=== PATIENT | male | born 2000 | race Caucasian/White ===

== ENCOUNTER 2021-10-04 02:07 | Emergency (ER) | payer OTHER, SELFPAY ==
[2021-10-04 02:15] VITALS: BP 132/63; PULSE 95; RESP 18; TEMP 36.8; O2SAT 97; BMI 19.5
--- NOTE | 2021-10-04 02:25 | ED.ANIMALBIT ---
HPI - Animal Bite General Chief Complaint: Animal Bite Stated Complaint: Dog bite Time Seen by Provider: 10/04/21 02:25 Source: patient Mode of arrival: ambulatory Limitations: no limitations History of Present Illness HPI narrative: Patient grabbed his pet dog who had broken pelvis unknowingly and dog bit him on his face patient came with 2 superficial bite lewis on the chin Related Data Previous Rx's Medication Instructions Recorded amoxicillin 875 mg-potassium 1 tab PO BID #20 tab 10/04/21 clavulanate 125 mg tablet Allergies Allergy/AdvReac Type Severity Reaction Status Date / Time No Known Allergies Allergy Verified 10/04/21 02:28 Review of Systems Review of Systems: Yes all other systems are reviewed and are negative [facility] Social History Social History Advance Directives: No Physical Exam ED Vital Signs: Vital Signs - 24 hr 10/04/21 02:15 Temperature 98.3 F Pulse Rate 95 Respiratory Rate 18 Blood Pressure 132/63 Pulse Oximetry 97 BMI result Body Mass Index 19.5 Const General: healthy appearing and comfortable [facility] Face images: 1. Superficial laceration 0.5 cm 2. Superficial laceration 0.5 cm Procedures Laceration Laceration 1: Site: face Size (cm): 0.5 Description: linear Local Anesthetic: lidocaine 2% Amount of anesthesia used (mL): 0.5 Skin layer closed with: nylon Size (cm): 6-0 Number of sutures: 3 Technique: simple, interrupted Laceration 2: Site: face Size (cm): 0.5 Description: linear Depth: simple, single layer Local Anesthetic: lidocaine 2% Amount of anesthesia used (mL): 0.5 Skin layer closed with: nylon Size (cm): 6-0 Number of sutures: 2 Technique: simple, interrupted Discharge Plan Discharge Clinical Impression: Dog bite Patient Disposition: Home, Self-Care Instructions: Animal Bite (ED) Additional Instructions: Local care as advised Suture removal in 1 week Antibiotic as advised Watch dog for 10 days, Report to the ER immediately if dog behave differently or dies Prescriptions: New amoxicillin-pot clavulanate 875-125 mg tablet 1 tab PO BID Qty: 20 0RF
--- NOTE | 2021-10-04 02:53 | PC.NURSE ---
Assumed care of pt Pt c/o lac over RT side of chin. Per pt, was bit by step-mother's leon pittbull approx 2 hours ago. Per pt, dog is his step-mother's and is not up-to-date with shots. Occurred in [place] Dog remains with patient's step-mother (Yesenia Weber) Form filled out for Animal Control. Attempted to call [place] Animal control but no answer. Faxed form to . Wound cleaned Will continue to monitor
[2021-10-04] MEDS: Lidocaine HCl 2 % MPF 5 ML VIAL INFILTRATI (03:22)
[2021-10-04] MEDS: Amoxicillin/Potassium Clav 875 MG TABLET PO (03:22)
== END 2021-10-04 03:26 | disposition home or self-care (01) ==
PROVIDERS: Emergency Provider Internal Medicine
DX: S00.87XA Other superficial bite of other part of head, initial encounter (principal); W54.0XXA Bitten by dog, initial encounter; Y93.9 Activity, unspecified; Y92.9 Unspecified place or not applicable; Y99.9 Unspecified external cause status
CPT/HCPCS: 12011; 99283; 99284

== ENCOUNTER 2022-07-02 17:04 | Emergency (ER) | payer OTHER, SELFPAY ==
--- NOTE | ~2022-07-02 | XR_ITS ---
EXAMINATION: XR CHEST CLINICAL INFORMATION: Cough with deep breathing. COMPARISON: None TECHNIQUE: 2 views of the chest were obtained. FINDINGS: No significant abnormality is noted involving the heart, lungs, mediastinum, bony thorax or soft tissues. XR/XR chest 2V IMPRESSION: No acute cardiopulmonary process.
--- NOTE | ~2022-07-02 | CT_ITS ---
EXAMINATION: CT ABDOMEN AND PELVIS WITHOUT CONTRAST CLINICAL INFORMATION: Right-sided flank pain COMPARISON: None TECHNIQUE: Multidetector volumetric imaging was performed from the superior aspect of the liver through the pubic symphysis. Sagittal and coronal reformatted images were obtained on the technologist's workstation. This CT examination was performed using dose optimization techniques as appropriate, variously including the following: *Automated exposure control *Adjustment of mA and/or kV according to patient size (this includes techniques or standardized protocols for targeted exams where dose is matched to indication/reason for exam; i.e. extremities or head) *Use of iterative reconstruction technique DLP: 303 mGy-cm FINDINGS: LUNG BASES: The visualized lung bases are unremarkable. LIVER, GALLBLADDER, AND BILIARY TREE: The liver is normal in size, shape, and attenuation. No focal hepatic lesion or biliary ductal dilatation is present. The gallbladder is unremarkable with no evidence of radiopaque gallstones, gallbladder wall thickening, or obvious pericholecystic inflammatory changes. PANCREAS: Unremarkable. SPLEEN: Unremarkable. ADRENAL GLANDS: Unremarkable. KIDNEYS AND URETERS: The kidneys are normal in size, shape, and attenuation. Both kidneys are nonrotated with anterior facing prominent extrarenal pelves. No caliectasis, hydroureter, or calculi seen. No perinephric stranding. BLADDER: Unremarkable. GASTROINTESTINAL TRACT: The small and large bowel are unremarkable. The appendix is none identified with certainty but there is no evidence of appendicitis. ABDOMINAL WALL: No significant hernia is appreciated. LYMPH NODES: No retroperitoneal lymphadenopathy. VASCULAR: Unremarkable. PELVIC VISCERA: The prostate and seminal vesicles are unremarkable. OSSEOUS STRUCTURES: Unremarkable. Schmorl's node seen at the inferior endplate of L3. CT/CT abdomen pelvis wo IV con IMPRESSION: A cause for the patient's right-sided flank pain has not been found. Fleischner guidelines were followed.
[2022-07-02 17:09] VITALS: BP 131/58; PULSE 61; RESP 20; TEMP 36.6; O2SAT 97; BMI 23.0
--- NOTE | 2022-07-02 17:09 | ED_ITS ---
HPI - Abdominal Pain General Chief Complaint: Abdominal Pain Stated Complaint: trouble walking, breathing, kidney pain Time Seen by Provider: 07/02/22 21:35 Related Data Previous Rx's Medication Instructions Recorded amoxicillin 875 mg-potassium 1 tab PO BID #20 tabs 10/04/21 clavulanate 125 mg tablet Allergies Allergy/AdvReac Type Severity Reaction Status Date / Time No Known Allergies Allergy Verified 10/04/21 02:28 [facility] Social History Social History Advance Directives: No Physical Exam ED Vital Signs: Vital Signs - 24 hr 07/02/22 17:09 Temperature 97.9 F Pulse Rate 61 Respiratory Rate 20 Blood Pressure 131/58 L Pulse Oximetry 97 Oxygen Delivery Method Room Air BMI result Body Mass Index 23.0 Course Course Course Narrative: This is rapid medical exam. deferred additional HPI, ROS, PE to primary provider. 21 yo male healthy here with left flank and abdominal pain with no other complaints. Pain worsened with deep breathing and movement. Will obtain labs, chest x-ray, COVID screen, UA Medical Decision Making Lab Data 07/02/22 19:44 07/02/22 19:44 Labs: Lab Results 07/02/22 07/02/22 07/02/22 Range/Units 19:43 19:44 19:44 WBC 5.8 (4.8-10.8) X10*3/uL RBC 5.28 (4.60-5.80) X10*6/uL Hgb 15.2 (14.0-18.0) g/dl Hct 45.5 (42.0-52.0) % MCV 86.2 (80.0-98.0) fL MCH 28.8 (27.0-33.0) pg MCHC 33.4 (31.0-36.0) g/dl RDW 11.8 (11.0-16.0) % Plt Count 241 (160-400) X10*3/uL MPV 10.2 (9.4-12.4) fL Immature Gran % (Auto) 0.3 (0.0-0.4) % Neut % (Auto) 45.2 (45-73) % Lymph % (Auto) 42.2 H (20-40) % [place] % (Auto) 9.9 (2-11) % Eos % (Auto) 1.9 (0-4) % Baso % (Auto) 0.5 (0-2) % Lymph # (Auto) 2.4 (1.2-4.9) X10*3/uL [place] # (Auto) 0.6 (0.1-1.2) X10*3/uL Eos # (Auto) 0.1 (0.0-0.4) X10*3/uL Baso # (Auto) 0.0 (0.0-0.2) X10*3/uL Abs Immat Gran (auto) 0.02 (0.00-0.03) X10*3/uL Absolute Neuts (auto) 2.6 (2.0-8.3) x10*3/uL Absolute Nucleated RBC 0.000 (0.0-0.012) X10*3/uL Nucleated RBC % (auto) 0.0 (0.0-0.2) /100WBC Sodium 139 (135-145) mmol/L Potassium 4.0 (3.3-5.1) mmol/L Chloride 105 (96-108) mmol/L Carbon Dioxide 27 (22-29) mmol/L Anion Gap 11 L (12-20) BUN 8 L (9-16) mg/dL Creatinine 0.84 (0.5-1.4) mg/dL Estim Creat Clear Calc 148.4 Estimated GFR > 60 Random Glucose 93 (60-115) mg/dL Calcium 9.8 (8.4-10.2) mg/dL Total Bilirubin 0.8 (0.0-1.0) mg/dL Direct Bilirubin 0.3 (0.0-0.5) mg/dL AST 17 (5-37) U/L ALT 7 (0-40) U/L Alkaline Phosphatase 79 (39-117) U/L Total Protein 7.3 (6.5-8.0) g/dL Albumin 4.7 (3.5-5.0) g/dL Lipase 148 H (8-78) U/L Urine Color Urine Appearance Urine pH (5.0-9.0) Ur Specific [place] (1.005-1.025) Urine Protein (Neg-Trace) mg/dL Urine Glucose (UA) (Negative) mg/dL Urine Ketones (Negative) mg/dL Urine Blood (Negative) Urine Nitrite (Negative) Ur Leukocyte Esterase (Negative) Influenza Type A (PCR) NEGATIVE (Negative) Influenza Type B (PCR) NEGATIVE (Negative) RSV RNA Qual (PCR) NEGATIVE (Negative) SARS-CoV-2 RNA (RT-PCR) NEGATIVE (Negative) 07/02/22 Range/Units 21:27 WBC (4.8-10.8) X10*3/uL RBC (4.60-5.80) X10*6/uL Hgb (14.0-18.0) g/dl Hct (42.0-52.0) % MCV (80.0-98.0) fL MCH (27.0-33.0) pg MCHC (31.0-36.0) g/dl RDW (11.0-16.0) % Plt Count (160-400) X10*3/uL MPV (9.4-12.4) fL Immature Gran % (Auto) (0.0-0.4) % Neut % (Auto) (45-73) % Lymph % (Auto) (20-40) % [place] % (Auto) (2-11) % Eos % (Auto) (0-4) % Baso % (Auto) (0-2) % Lymph # (Auto) (1.2-4.9) X10*3/uL [place] # (Auto) (0.1-1.2) X10*3/uL Eos # (Auto) (0.0-0.4) X10*3/uL Baso # (Auto) (0.0-0.2) X10*3/uL Abs Immat Gran (auto) (0.00-0.03) X10*3/uL Absolute Neuts (auto) (2.0-8.3) x10*3/uL Absolute Nucleated RBC (0.0-0.012) X10*3/uL Nucleated RBC % (auto) (0.0-0.2) /100WBC Sodium (135-145) mmol/L Potassium (3.3-5.1) mmol/L Chloride (96-108) mmol/L Carbon Dioxide (22-29) mmol/L Anion Gap (12-20) BUN (9-16) mg/dL Creatinine (0.5-1.4) mg/dL Estim Creat Clear Calc Estimated GFR Random Glucose (60-115) mg/dL Calcium (8.4-10.2) mg/dL Total Bilirubin (0.0-1.0) mg/dL Direct Bilirubin (0.0-0.5) mg/dL AST (5-37) U/L ALT (0-40) U/L Alkaline Phosphatase (39-117) U/L Total Protein (6.5-8.0) g/dL Albumin (3.5-5.0) g/dL Lipase (8-78) U/L Urine Color Yellow Urine Appearance Clear Urine pH 7.0 (5.0-9.0) Ur Specific [place] 1.015 (1.005-1.025) Urine Protein Negative (Neg-Trace) mg/dL Urine Glucose (UA) Negative (Negative) mg/dL Urine Ketones Negative (Negative) mg/dL Urine Blood Negative (Negative) Urine Nitrite Negative (Negative) Ur Leukocyte Esterase Negative (Negative) Influenza Type A (PCR) (Negative) Influenza Type B (PCR) (Negative) RSV RNA Qual (PCR) (Negative) SARS-CoV-2 RNA (RT-PCR) (Negative) Discharge Plan Discharge Clinical Impression: Muscle strain of chest wall Patient Disposition: Home, Self-Care Additional Instructions: Take ibuprofen for discomfort if needed, as directed Prescriptions: No Action amoxicillin-pot clavulanate 875-125 mg tablet 1 tab PO BID Qty: 20 0RF Stand Alone Forms: Work/School Release Interventions: ED Discharge Assessment Last Done: 07/02/22 22:49 Discharge Date/Time: 07/02/22 22:51
[2022-07-02 19:57] LABS: MANUAL DIFF FLAG NO
[2022-07-02 19:58] LABS: Basophils Percent Auto 0.5 % (0-2); Eosinophils Absolute Auto 0.1 X10*3/uL (0.0-0.4); Eosinophils Percent Auto 1.9 % (0-4); Hematocrit 45.5 % (42.0-52.0); Hemoglobin 15.2 g/dl (14.0-18.0); Imm Gran Abs Auto 0.02 X10*3/uL (0.00-0.03); Imm Gran Pct Auto 0.3 % (0.0-0.4); Lymphocytes Absolute Auto 2.4 X10*3/uL (1.2-4.9); Lymphocytes Percent Auto 42.2 % (20-40); Mean Corpuscular HGB Conc 33.4 g/dl (31.0-36.0); Mean Corpuscular Hemoglobin 28.8 pg (27.0-33.0); Mean Corpuscular Volume 86.2 fL (80.0-98.0); Mean Platelet Volume 10.2 fL (9.4-12.4); Monocytes Absolute Auto 0.6 X10*3/uL (0.1-1.2); Monocytes Percent Auto 9.9 % (2-11); Neutrophils Absolute Auto 2.6 x10*3/uL (2.0-8.3); Neutrophils Percent Auto 45.2 % (45-73); Platelet Count 241 X10*3/uL (160-400); Red Blood Count 5.28 X10*6/uL (4.60-5.80); Red Cell Distribution Width 11.8 % (11.0-16.0); White Blood Count 5.8 X10*3/uL (4.8-10.8)
[2022-07-02 20:18] LABS: Alanine Aminotransferase 7 U/L (0-40); Albumin Level 4.7 g/dL (3.5-5.0); Alkaline Phosphatase 79 U/L (39-117); Anion Gap 11 (12-20); Aspartate Amino Transferase 17 U/L (5-37); Bilirubin Direct 0.3 mg/dL (0.0-0.5); Bilirubin Total 0.8 mg/dL (0.0-1.0); Blood Urea Nitrogen 8 mg/dL (9-16); Calcium 9.8 mg/dL (8.4-10.2); Carbon Dioxide 27 mmol/L (22-29); Chloride 105 mmol/L (96-108); Creatinine Clr Calc Pharmacy 148.4; Estimated Glomerular Filt Rate > 60; Glucose Random 93 mg/dL (60-115); Lipase 148 U/L (8-78); Sodium 139 mmol/L (135-145); Total Protein 7.3 g/dL (6.5-8.0)
[2022-07-02 20:32] LABS: Influenza A PCR NEGATIVE (Negative); Influenza B PCR NEGATIVE (Negative); Resp Syncy Virus RNA Qual PCR NEGATIVE (Negative); SARS COV2 PCR INHOUSE NEGATIVE (Negative)
[2022-07-02 21:37] LABS: Appearance Urine Clear; Color Urine Yellow; Glucose Urine UA Negative (Negative); Leukocyte Esterase Urine Negative (Negative); Nitrite Urine Negative (Negative); Specific Gravity - Urine 1.015 (1.005-1.025); Urine Blood Negative (Negative); Urine Ketones Negative (Negative); Urine Protein Negative (Neg-Trace)
--- NOTE | 2022-07-02 21:47 | ED.ABDPAIN ---
HPI - Abdominal Pain General Chief Complaint: Abdominal Pain Stated Complaint: trouble walking, breathing, kidney pain Time Seen by Provider: 07/02/22 21:35 Source: patient Limitations: no limitations History of Present Illness HPI narrative: Patient with 4 days of left flank pain. No traumas or causative factors of which he is aware. No nausea vomiting diarrhea constipation. Slightly worse with walking. No cough fevers chills. No history of similar issues. He is concerned as some family members have a history of kidney stones. No dysuria or hematuria. Related Data Previous Rx's Medication Instructions Recorded amoxicillin 875 mg-potassium 1 tab PO BID #20 tabs 10/04/21 clavulanate 125 mg tablet Allergies Allergy/AdvReac Type Severity Reaction Status Date / Time No Known Allergies Allergy Verified 10/04/21 02:28 Review of Systems Comments: No fevers or chills Comments: No chest pain Comments: No cough or dyspnea Comments: Flank pain but no nausea vomiting diarrhea. Comments: No dysuria, hematuria, hesitancy, frequency Comments: Flank pain Comments: No rash Comments: No weakness PMFSH Social History Social History Advance Directives: No Physical Exam ED Vital Signs: Vital Signs - 24 hr 07/02/22 17:09 07/02/22 21:50 Temperature 97.9 F 98.8 F Pulse Rate 61 72 Respiratory Rate 20 16 Blood Pressure 131/58 L 133/88 Pulse Oximetry 97 98 Oxygen Delivery Method Room Air Room Air BMI result Body Mass Index 23.0 Const Other: Awake alert. No acute distress Resp Other: Clear and equal bilaterally without wheezes rales or rhonchi Cardio Other: Regular rate and rhythm without murmurs rubs or gallops GI Other: Soft. Minimal tenderness right lateral upper abdomen. No guarding rebound. No masses. No pulsatile aorta. No flank tenderness to percussion. No right lower quadrant or right upper quadrant tenderness. Bowel sounds normal Skin Other: Warm and dry Neuro Other: Ambulatory without difficulty Medical Decision Making Medical Decision Making MDM Narrative: Patient with flank pain. Multiple potential etiologies. Differential diagnosis would include Kidney stone Musculoskeletal pain Pyelonephritis Gastroenteritis Pancreatitis less likely given location 21:50. CBC shows normal white cells and hemoglobin. Normal platelets. Chemistries normal including BUN creatinine. Liver function tests are normal Urinalysis is normal without evidence of infection or red cells I discussed with patient other possible etiologies for his pain. Agree with CT scan to rule out nephrolithiasis 22:28. CT scan shows no evidence of nephrolithiasis or other abnormalities. He is stable for discharge home Lab Data 07/02/22 19:44 07/02/22 19:44 Labs: Lab Results 07/02/22 07/02/22 07/02/22 Range/Units 19:43 19:44 19:44 WBC 5.8 (4.8-10.8) X10*3/uL RBC 5.28 (4.60-5.80) X10*6/uL Hgb 15.2 (14.0-18.0) g/dl Hct 45.5 (42.0-52.0) % MCV 86.2 (80.0-98.0) fL MCH 28.8 (27.0-33.0) pg MCHC 33.4 (31.0-36.0) g/dl RDW 11.8 (11.0-16.0) % Plt Count 241 (160-400) X10*3/uL MPV 10.2 (9.4-12.4) fL Immature Gran % (Auto) 0.3 (0.0-0.4) % Neut % (Auto) 45.2 (45-73) % Lymph % (Auto) 42.2 H (20-40) % [place] % (Auto) 9.9 (2-11) % Eos % (Auto) 1.9 (0-4) % Baso % (Auto) 0.5 (0-2) % Lymph # (Auto) 2.4 (1.2-4.9) X10*3/uL [place] # (Auto) 0.6 (0.1-1.2) X10*3/uL Eos # (Auto) 0.1 (0.0-0.4) X10*3/uL Baso # (Auto) 0.0 (0.0-0.2) X10*3/uL Abs Immat Gran (auto) 0.02 (0.00-0.03) X10*3/uL Absolute Neuts (auto) 2.6 (2.0-8.3) x10*3/uL Absolute Nucleated RBC 0.000 (0.0-0.012) X10*3/uL Nucleated RBC % (auto) 0.0 (0.0-0.2) /100WBC Sodium 139 (135-145) mmol/L Potassium 4.0 (3.3-5.1) mmol/L Chloride 105 (96-108) mmol/L Carbon Dioxide 27 (22-29) mmol/L Anion Gap 11 L (12-20) BUN 8 L (9-16) mg/dL Creatinine 0.84 (0.5-1.4) mg/dL Estim Creat Clear Calc 148.4 Estimated GFR > 60 Random Glucose 93 (60-115) mg/dL Calcium 9.8 (8.4-10.2) mg/dL Total Bilirubin 0.8 (0.0-1.0) mg/dL Direct Bilirubin 0.3 (0.0-0.5) mg/dL AST 17 (5-37) U/L ALT 7 (0-40) U/L Alkaline Phosphatase 79 (39-117) U/L Total Protein 7.3 (6.5-8.0) g/dL Albumin 4.7 (3.5-5.0) g/dL Lipase 148 H (8-78) U/L Urine Color Urine Appearance Urine pH (5.0-9.0) Ur Specific [place] (1.005-1.025) Urine Protein (Neg-Trace) mg/dL Urine Glucose (UA) (Negative) mg/dL Urine Ketones (Negative) mg/dL Urine Blood (Negative) Urine Nitrite (Negative) Ur Leukocyte Esterase (Negative) Influenza Type A (PCR) NEGATIVE (Negative) Influenza Type B (PCR) NEGATIVE (Negative) RSV RNA Qual (PCR) NEGATIVE (Negative) SARS-CoV-2 RNA (RT-PCR) NEGATIVE (Negative) 07/02/22 Range/Units 21:27 WBC (4.8-10.8) X10*3/uL RBC (4.60-5.80) X10*6/uL Hgb (14.0-18.0) g/dl Hct (42.0-52.0) % MCV (80.0-98.0) fL MCH (27.0-33.0) pg MCHC (31.0-36.0) g/dl RDW (11.0-16.0) % Plt Count (160-400) X10*3/uL MPV (9.4-12.4) fL Immature Gran % (Auto) (0.0-0.4) % Neut % (Auto) (45-73) % Lymph % (Auto) (20-40) % [place] % (Auto) (2-11) % Eos % (Auto) (0-4) % Baso % (Auto) (0-2) % Lymph # (Auto) (1.2-4.9) X10*3/uL [place] # (Auto) (0.1-1.2) X10*3/uL Eos # (Auto) (0.0-0.4) X10*3/uL Baso # (Auto) (0.0-0.2) X10*3/uL Abs Immat Gran (auto) (0.00-0.03) X10*3/uL Absolute Neuts (auto) (2.0-8.3) x10*3/uL Absolute Nucleated RBC (0.0-0.012) X10*3/uL Nucleated RBC % (auto) (0.0-0.2) /100WBC Sodium (135-145) mmol/L Potassium (3.3-5.1) mmol/L Chloride (96-108) mmol/L Carbon Dioxide (22-29) mmol/L Anion Gap (12-20) BUN (9-16) mg/dL Creatinine (0.5-1.4) mg/dL Estim Creat Clear Calc Estimated GFR Random Glucose (60-115) mg/dL Calcium (8.4-10.2) mg/dL Total Bilirubin (0.0-1.0) mg/dL Direct Bilirubin (0.0-0.5) mg/dL AST (5-37) U/L ALT (0-40) U/L Alkaline Phosphatase (39-117) U/L Total Protein (6.5-8.0) g/dL Albumin (3.5-5.0) g/dL Lipase (8-78) U/L Urine Color Yellow Urine Appearance Clear Urine pH 7.0 (5.0-9.0) Ur Specific [place] 1.015 (1.005-1.025) Urine Protein Negative (Neg-Trace) mg/dL Urine Glucose (UA) Negative (Negative) mg/dL Urine Ketones Negative (Negative) mg/dL Urine Blood Negative (Negative) Urine Nitrite Negative (Negative) Ur Leukocyte Esterase Negative (Negative) Influenza Type A (PCR) (Negative) Influenza Type B (PCR) (Negative) RSV RNA Qual (PCR) (Negative) SARS-CoV-2 RNA (RT-PCR) (Negative) Discharge Plan Discharge Clinical Impression: Muscle strain of chest wall Patient Disposition: Home, Self-Care Instructions: Muscle Strain (ED) Additional Instructions: Take ibuprofen for discomfort if needed, as directed Prescriptions: No Action amoxicillin-pot clavulanate 875-125 mg tablet 1 tab PO BID Qty: 20 0RF Stand Alone Forms: Work/School Release
[2022-07-02 21:50] VITALS: BP 133/88; PULSE 72; RESP 16; TEMP 37.1; O2SAT 98
== END 2022-07-02 22:51 | disposition home or self-care (01) ==
PROVIDERS: Nurse Practitioner Family; Emergency Provider Emergency Medicine
DX: R07.89 Other chest pain (principal); R10.9 Unspecified abdominal pain; Z20.822 Contact with and (suspected) exposure to COVID-19; Z20.828 Contact with and (suspected) exposure to other viral communicable diseases; Z79.899 Other long term (current) drug therapy
CPT/HCPCS: 0241U; 36415; 71046; 74176; 80048; 80076; 81003; 83690; 85025; 99283; 99284

== ENCOUNTER 2024-04-03 21:22 | Emergency (ER) | payer OTHER, SELFPAY ==
[2024-04-03 21:35] VITALS: BP 103/73; PULSE 63; RESP 16; TEMP 36.8; O2SAT 98; BMI 19.2
[2024-04-03 22:01] LABS: MANUAL DIFF FLAG NO
[2024-04-03 22:02] LABS: Basophils Absolute Auto 0.1 X10*3/uL (0.0-0.2); Basophils Percent Auto 0.4 % (0-2); Eosinophils Absolute Auto 0.1 X10*3/uL (0.0-0.4); Eosinophils Percent Auto 0.5 % (0-4); Hematocrit 43.7 % (42.0-52.0); Hemoglobin 14.6 g/dl (14.0-18.0); Imm Gran Abs Auto 0.05 X10*3/uL (0.00-0.03); Imm Gran Pct Auto 0.4 % (0.0-0.4); Lymphocytes Absolute Auto 3.8 X10*3/uL (1.2-4.9); Lymphocytes Percent Auto 28.7 % (20-40); Mean Corpuscular HGB Conc 33.4 g/dl (31.0-36.0); Mean Corpuscular Hemoglobin 29.4 pg (27.0-33.0); Mean Corpuscular Volume 87.9 fL (80.0-98.0); Mean Platelet Volume 9.8 fL (9.4-12.4); Monocytes Absolute Auto 1.1 X10*3/uL (0.1-1.2); Neutrophils Absolute Auto 8.2 x10*3/uL (2.0-8.3); Platelet Count 287 X10*3/uL (160-400); Red Blood Count 4.97 X10*6/uL (4.60-5.80); Red Cell Distribution Width 11.9 % (11.0-16.0); White Blood Count 13.2 X10*3/uL (4.8-10.8)
[2024-04-03 22:16] LABS: Alanine Aminotransferase 15 U/L (0-40); Albumin Level 4.6 g/dL (3.5-5.0); Alkaline Phosphatase 72 U/L (39-117); Anion Gap 15 (12-20); Aspartate Amino Transferase 28 U/L (5-37); Bilirubin Total 0.4 mg/dL (0.0-1.0); Blood Urea Nitrogen 11 mg/dL (9-16); Calcium 10.1 mg/dL (8.4-10.2); Carbon Dioxide 28 mmol/L (22-29); Chloride 102 mmol/L (96-108); Creatinine Clr Calc Pharmacy 104.1; Estimated Glomerular Filt Rate > 60; Glucose Random 136 mg/dL (60-115); Potassium 3.7 mmol/L (3.3-5.1); Sodium 141 mmol/L (135-145)
--- NOTE | 2024-04-04 00:06 | ED.GENADULT ---
HPI - General Adult General Chief complaint: General Medical Stated complaint: RT side pain Time Seen by Provider: 04/04/24 00:00 Source: patient Limitations: no limitations History of Present Illness ED Provider: Marleen Ferrari PA-C HPI narrative: Patient is a 23 year old male who presents with right sided/flank pain x2 days. Patient states he fell out of his bed onto his back 3 days ago and the pain began the next morning. He denies head strike. The pain is better when lying down and worse with movement/coughing. Patient states the pain is about 2/10. He denies hematuria, fever, and other systemic symptoms. Related Data Previous Rx's ?Medication ?Instructions ?Recorded amoxicillin 875 mg-potassium 1 tab PO BID #20 tabs 10/04/21 clavulanate 125 mg tablet Allergies Allergy/AdvReac Type Severity Reaction Status Date / Time No Known Allergies Allergy Verified 04/03/24 21:35 Review of Systems Review of Systems: Yes all other systems are reviewed and are negative Constitutional: Constitutional: Denies chills, Denies fatigue, Denies fever(s), Denies headache(s) and Denies weakness Eyes: Eyes: Denies change in vision ENT: Denies dizziness and Denies headache(s) Cardiovascular: Cardiovascular: Denies Abdominal Distension, Denies chest pain, Denies Epigastric Pain, Denies syncope, Denies Loss of Consciousness, Denies palpitations and Denies dyspnea Respiratory: Respiratory: Denies cough and Denies dyspnea Gastrointestinal: Gastrointestinal: Reports abdominal pain, Denies change in stool character, Denies constipation, Denies diarrhea and Denies nausea Genitourinary: Genitourinary: Denies hematuria, Denies genital pain, Denies dysuria, Reports flank pain, Denies urinary frequency and Denies urinary urgency Musculoskeletal: Musculoskeletal: Denies abnormal gait, Reports back pain, Denies myalgias, Denies deformity, Denies arthralgias, Denies joint swelling, Denies numbness, Denies stiffness and Denies tingling Integumentary/Breasts: Skin/Breast: Denies swelling, Denies lesions, Denies erythema, Denies rash and Denies wounds Neurologic: Denies abnormal gait, Denies dizziness, Denies syncope, Denies headache(s), Denies lack of coordination, Denies numbness, Denies tingling and Denies weakness Psychiatric: Psychiatric: Denies homicidal ideation and Denies suicidal ideation Endocrine: Endocrine: Denies fatigue and Denies palpitations Hematologic/Lymphatic: Hematologic/Lymphatic: Denies easy bleeding and Denies easy bruising PMFSH Past Medical History Attestation statement: The following information was validated with the patient. Social History Social History Advance Directives: No Advance Directives Information Provided: No Do you have a plan to hurt others: No Plan Physical Exam ED Vital Signs: Vital Signs - 24 hr 04/03/24 21:35 Temperature 98.2 F Pulse Rate 63 Respiratory Rate 16 Blood Pressure 103/73 Pulse Oximetry 98 Oxygen Delivery Method Room Air BMI result Body Mass Index 19.2 Const General: cooperative, healthy appearing, comfortable and no acute distress; No diaphoretic or ill appearing Nutritional Appearance: average body habitus Orientation/consciousness: patient oriented x3 Limitations: no limitations HENMT Head: Yes normal to inspection, Yes normocephalic and Yes atraumatic Eyes General: appearance normal, both eyes and all related structures Visual López: normal visual lópez by confrontation Alignment and Position: alignment normal Periorbital: periorbital findings normal Eyelids: Yes eyelids normal Conjunctivae: conjunctivae normal Sclerae: sclerae normal Corneas: corneas normal Pupils: Equal, round and reactive pupils present EOM: EOMs intact bilaterally Neck Neck: Yes normal visual inspection, Yes full ROM, Yes no lymphadenopathy and Yes no meningeal signs Resp Effort & Inspection: normal respiratory effort, able to speak in complete sentences, no cough, not labored and no use of accessory muscles Auscultation: clear to auscultation bilaterally Cardio Jugular venous distension: no JVD Rate: regular rate Rhythm: regular rhythm Heart sounds: S1 normal heart sound present and S2 normal heart sound present GI Inspection: Yes normal to inspection, No abdominal wall ecchymosis, No distended and No visible herniation Palpation (GI): Soft to palpation, nontender, no guarding, not rigid, no hepatomegaly, no splenomegaly and no masses General: Yes no CVA tenderness Back/Spine/Pelvis Back: no CVA tenderness Skin General skin exam: no rashes or lesions noted, no ecchymosis, no erythema, no petechiae and no pallor Lesions: no lesions Rashes: no rashes Wounds: no wounds Neuro General: patient oriented x3, moves all extremities, no meningeal signs, no focal motor deficits and CN's II-XI intact bilaterally Cranial nerves: Yes CN's II-XII intact bilaterally, Yes Equal, round and reactive pupils present and Yes Bilaterally intact EOM present Cognition (Neuro): normal cognition Extrem General: Yes normal to inspection, Yes full ROM, Yes capillary refill normal and Yes normal gait Psych Other: calm and cooperative Appearance: grossly normal Mental Status: mental status grossly normal Speech and movement: Normal speech and movement present and Clear speech present Affect: normal affect Attitude: cooperative Thought process: Normal thought process present Thought content: Normal thought content present Insight: Good insight present (Psych) Judgement: Good judgement present (Psych) Medical Decision Making Medical Decision Making MDM Narrative: I Marleen Ferrari PA-C have personally assessed and manage the patient, Toma MAZARIEGOS observed and helped to formulate the documentation Patient is a 23 year old male who presents with right sided/flank pain x2 days. Patient states he fell out of his bed onto his back 3 days ago and the pain began the next morning. He denies head strike. The pain is better when lying down and worse with movement/coughing. Patient states the pain is about 2/10. He denies hematuria, fever, and other systemic symptoms. Patient has no PMH. DDx: MSK strain, fracture, organ rupture, pyelonephritis, nephrolithiasis Plan: Given that the patients pain began the day after the injury, is worse with movement, and there are no systemic symptoms, I believe the most likely cause is MSK strain. Considered nephrolithiasis and pyelonephrtitis, however patient has no urinary symptoms, no hematuria, and no fever/chills, therefore making this unlikely. Will further assess with CBC. Also considered fracture, however the pain did not begin when the injury occurred, and there is no edema or ecchymosis noted on exam, therefore will defer X-Rays at this time. Also considered organ rupture, however there is no distension, ecchymosis, and no signs of active bleeding, therefore making this unlikely. Per Marleen Ferrari PA-C I agree with the above differential. The patient fell out of bed, he is a young healthy individual, there are no signs of trauma on the exam, his abdominal exam was benign, I have no suspicion for organ laceration/intra-abdominal bleeding, furthermore the incident happened 2 days ago, in his H&H are completely stable. We will send with home care instructions. No indication for imaging I have independently reviewed the following tests: Labs: No leukocytosis, not anemic, no electrolyte abnormality, urine not infected no hematuria, viral panel negative Lab Data 04/03/24 21:57 04/03/24 21:41 Labs: Lab Results 04/03/24 04/03/24 Range/Units 21:41 21:57 WBC 13.2 H (4.8-10.8) X10*3/uL RBC 4.97 (4.60-5.80) X10*6/uL Hgb 14.6 (14.0-18.0) g/dl Hct 43.7 (42.0-52.0) % MCV 87.9 (80.0-98.0) fL MCH 29.4 (27.0-33.0) pg MCHC 33.4 (31.0-36.0) g/dl RDW 11.9 (11.0-16.0) % Plt Count 287 (160-400) X10*3/uL MPV 9.8 (9.4-12.4) fL Immature Gran % (Auto) 0.4 (0.0-0.4) % Neut % (Auto) 62.0 (45-73) % Lymph % (Auto) 28.7 (20-40) % [place] % (Auto) 8.0 (2-11) % Eos % (Auto) 0.5 (0-4) % Baso % (Auto) 0.4 (0-2) % Lymph # (Auto) 3.8 (1.2-4.9) X10*3/uL [place] # (Auto) 1.1 (0.1-1.2) X10*3/uL Eos # (Auto) 0.1 (0.0-0.4) X10*3/uL Baso # (Auto) 0.1 (0.0-0.2) X10*3/uL Abs Immat Gran (auto) 0.05 H (0.00-0.03) X10*3/uL Absolute Neuts (auto) 8.2 (2.0-8.3) x10*3/uL Absolute Nucleated RBC 0.000 (0.0-0.012) X10*3/uL Nucleated RBC % (auto) 0.0 (0.0-0.2) /100WBC Sodium 141 (135-145) mmol/L Potassium 3.7 (3.3-5.1) mmol/L Chloride 102 (96-108) mmol/L Carbon Dioxide 28 (22-29) mmol/L Anion Gap 15 (12-20) BUN 11 (9-16) mg/dL Creatinine 0.98 (0.5-1.4) mg/dL Estim Creat Clear Calc 104.1 Estimated GFR > 60 Random Glucose 136 H (60-115) mg/dL Calcium 10.1 (8.4-10.2) mg/dL Total Bilirubin 0.4 (0.0-1.0) mg/dL AST 28 (5-37) U/L ALT 15 (0-40) U/L Alkaline Phosphatase 72 (39-117) U/L Total Protein 8.0 (6.5-8.0) g/dL Albumin 4.6 (3.5-5.0) g/dL Discharge Plan Discharge Clinical Impression: Contusion of back Patient Disposition: Home, Self-Care Instructions: Contusion in Adults (ED) Additional Instructions: All of your labs were normal, based on the mechanism of injury, you have sustained a contusion, this is a fancy word for an internal bruise. You can use [id number] ibuprofen 600 mg taken every 6 hours with food, alternated with [id number] Tylenol 1000 mg taken every 8 hours, for pain. Follow up with your primary care provider as needed. Prescriptions: No Action amoxicillin-pot clavulanate 875-125 mg tablet 1 tab PO BID Qty: 20 0RF Print Language: [place]uran
[2024-04-04 00:45] VITALS: BP 112/66; PULSE 72; RESP 16; TEMP 36.7; O2SAT 98
== END 2024-04-04 01:00 | disposition home or self-care (01) ==
PROVIDERS: Emergency Provider Internal Medicine
DX: S30.0XXA Contusion of lower back and pelvis, initial encounter (principal); R10.2 Pelvic and perineal pain; W06.XXXA Fall from bed, initial encounter; Y93.89 Activity, other specified; Y92.89 Other specified places as the place of occurrence of the external cause; Y99.8 Other external cause status
CPT/HCPCS: 36415; 80053; 85025; 99282; 99283

== ENCOUNTER 2024-08-29 17:11 | Emergency (ER) | payer SELFPAY ==
[2024-08-29 17:18] VITALS: BP 123/63; PULSE 112; RESP 18; TEMP 36.8; O2SAT 99; BMI 19.4
--- NOTE | 2024-08-29 17:54 | ED.GENADULT ---
HPI - General Adult General Chief complaint: General Medical Stated complaint: wants test for strep throat History of Present Illness ED Provider: Ramon Goldstein HPI narrative: patient left before completiont of treatment by ED. Related Data Previous Rx's ?Medication ?Instructions ?Recorded amoxicillin 875 mg-potassium 1 tab PO BID #20 tabs 10/04/21 clavulanate 125 mg tablet Allergies Allergy/AdvReac Type Severity Reaction Status Date / Time bee pollen [bee stings] Allergy Rash Verified 08/29/24 17:19 PMFSH Social History Social History Advance Directives: No Advance Directives Information Provided: No Physical Exam ED Vital Signs: Vital Signs - 24 hr 08/29/24 17:18 Temperature 98.3 F Pulse Rate 112 H Respiratory Rate 18 Blood Pressure 123/63 Pulse Oximetry 99 Oxygen Delivery Method Room Air BMI result Body Mass Index 19.4 Course Course Course Narrative: RME: 23-year-old male requesting strep test. Patient was sent by employer for testing or strep due to many of his coworkers tested positive for strep. Patient is symptomatic. SARs strep ordered. Discharge Plan Discharge Clinical Impression: Normal exam Patient Disposition: Left W/O Completing Treatment Prescriptions: No Action amoxicillin-pot clavulanate 875-125 mg tablet 1 tab PO BID Qty: 20 0RF Interventions: LWBS Worksheet Last Done: 08/29/24 20:21 Discharge Date/Time: 08/29/24 20:21
--- OUTSIDE RECORDS SUMMARY | 2024-08-29 19:02 | XMS_ITS | Continuity of Care Document ---
Author Organization [facility] In DENIER CONTROL OPERATOR [facility] Address [address] [place] [address] Care Team Providers Care Photo Machine Operator Name Role Phone Radha DO, Shelton Unavailable Unavailable Allergies, Adverse Reactions, Alerts Substance Reaction Status Criticality No Known Allergies Active No Inform ation Procedures Procedure Date HEPATIC FUNCTION PANEL LIPID PANEL Routine Venipuncture Temp Fix 0 AMNT PAIN NOTED; NONE PRSNT DEPRESSION SCREENING TOBACCO USE, SMOKING, ASSESS TOBACCO NON-USER SYST BP GE 130 - 139MM HG DIAST BP >= 90 MM HG SBIRT SCREEN NEGATIVE Other Health OFFICE/OUTPATIENT VISIT, EST AMNT PAIN NOTED; NONE PRSNT DEPRESSION SCREENING TOBACCO USE, SMOKING, ASSESS TOBACCO NON-USER SYST BP GE 130 - 139MM HG DIAST BP < 80 MM HG OFFICE/OUTPATIENT VISIT, EST ACUTE HEPATITIS PANEL SYST BP GE 130 - 139MM HG DIAST BP < 80 MM HG AMNT PAIN NOTED; NONE PRSNT MED LIST DOCD IN RCRD DEPRESSION SCREENING TOBACCO USE, SMOKING, ASSESS TOBACCO NON-USER SBIRT SCREEN NEGATIVE OFFICE/OUTPATIENT VISIT, EST Routine Venipuncture Temp Fix 0 COMPREHEN METABOLIC PANEL CBC, AUTOMATED ASSAY OF FERRITIN TSH URINALSIS AUTO W SCOPE REFERRAL LAB SYST BP GE 130 - 139MM HG SYST BP GE 130 - 139MM HG DIAST BP 80-89 MM HG AMNT PAIN NOTED; NONE PRSNT DEPRESSION SCREENING TOBACCO NON-USER SBIRT SCREEN NEGATIVE OFFICE/OUTPATIENT VISIT, EST Routine Venipuncture Temp Fix 0 Periodic Oral Evaluation-Established Pat ient Intraoral-Periapical First Film 020 Intraoral-Periapical Each Additional Denilson m Bitewings-Four Films CARIES ASSESS HIGH Office Visit For Observation (During Reg [facility] Sealant-Per Tooth Sealant-Per Tooth Prophylaxis-Adult Topical Fluoride Varnish; Therapeutic Ap plication Oral Hygiene Instructions Office Visit For Observation (During Reg ularly [facility] Bitewings-Four Films Intraoral-Periapical First Film 019 Intraoral-Periapical Each Additional Denilson m Panoramic Film Comprehensive Oral Evaluation-New Or Est ablished P CARIES ASSESS LOW COMPREHEN METABOLIC PANEL LIPID PANEL CBC W/AUTO DIFF WBC CBC W/AUTO DIFF WBC GLYCOHEMOBLOBIN A1C REFERRAL LAB 2017 CHYLMD TRACH, DNA, AMP PROBE N.GONORRHOEAE, DNA, AMP PROB AMNT PAIN NOTED; NONE PRSNT MED LIST DOCD IN RCRD DEPRESSION SCREENING SYST BP GE 130 - 139MM HG DIAST BP 80-89 MM HG SBIRT SCREEN NEGATIVE Other Health VISUAL ACUITY SCREEN HEMOGLOBIN CAPILLARY BLOOD DRAW URINALYSIS NONAUTO W/O SCOPE HPV VACCINE NONVALENT IM 3 Dose Schedule PREV VISIT, EST, AGE 12-17 CAPILLARY BLOOD DRAW PURE TONE HEARING TEST, AIR VISUAL ACUITY SCREEN ROUTINE VENIPUNCTURE MENINGOCOCCAL VACCINE, IM IMMUNIZATION ADMIN IMMUNIZATION ADMIN, EACH ADD HG A1C LEVEL LT 7.0% Other Health PURE TONE HEARING TEST, AIR SBIRT SCREEN POSTIVIE HEMOGLOBIN CAPILLARY BLOOD DRAW URINALYSIS NONAUTO W/O SCOPE PREV VISIT, EST, AGE 12-17 CAPILLARY BLOOD DRAW PURE TONE HEARING TEST, AIR COMPREHEN METABOLIC PANEL LIPID PANEL CBC W/AUTO DIFF WBC GLYCOHEMOBLOBIN A1C REFERRAL LAB 2016 [facility] ASSAY OF FREE THYROXINE Referral 2016 OFFICE/OUTPATIENT VISIT, EST Other Health ROUTINE VENIPUNCTURE AMNT PAIN NOTED; NONE PRSNT SYST BP GE 130 - 139MM HG SYST BP >= 140 MM HG6 IT STREP A ASSAY W/OPTIC OFFICE/OUTPATIENT VISIT, EST Other Health OFFICE/OUTPATIENT VISIT, EST OFFICE/OUTPATIENT VISIT, EST Other Health GENERAL HEALTH PANEL LIPID PANEL GLYCOHEMOBLOBIN A1C REFERRAL LAB 2015 ASSAY OF FREE THYROXINE Referral 2015 OFFICE/OUTPATIENT VISIT, EST ROUTINE VENIPUNCTURE Office Visit For Observation ([facility] Sealant Tracking Code Resin-Based Composite-Two Surfaces, Post erior Resin-Based Composite-Two Surfaces, Post erior Prophylaxis-Adult Flouride Application Oral Hygiene Instructions Office Visit For Observation (During [facility] Periodic Oral Evaluation-Established Pat ient Intraoral-Complete Series (Including Bit ewings) DEPRESSION SCREENING Other Health PURE TONE AUDIOMETRY, AIR VISUAL ACUITY SCREEN HEMOGLOBIN URINALYSIS NONAUTO W/O SCOPE PREV VISIT, EST, AGE 12-17 TDAP VACCINE >7 IM CHICKEN POX VACCINE, SC CAPILLARY BLOOD DRAW OFFICE/OUTPATIENT VISIT, EST IMMUNIZATION ADMIN INFLUENZA 3 YEARS PLUS FLUARIX VFC Nov-0 Void Encounter OFFICE/OUTPATIENT VISIT, EST OFFICE/OUTPATIENT VISIT, EST OFFICE/OUTPATIENT VISIT, EST OFFICE/OUTPATIENT VISIT, EST Office Visit For Observation ([facility] Prophylaxis-Child Oral Hygiene Instructions Topical Application Of Fluoride (Prophyl axis Not I Periodic Oral Evaluation-Established Pat ient Bitewings-Two Films Intraoral-Periapical First Film 012 Intraoral-Periapical Each Additional Denilson m Office Visit For Observation ([facility] Periodic Oral Evaluation-Established Pat ient Intraoral-Periapical First Film 012 Intraoral-Periapical Each Additional Denilson m Bitewings-Two Films Topical Application Of Fluoride (Prophyl axis Not I Prophylaxis-Child Oral Hygiene Instructions Hygienist Enc [place] Advance Directives Directive Yes / No Effective Date File Name No Information Encounters Encounter Description Practice Location Reason(s) For Visit Diagnoses Date Provider Providers Copied on Encounter [address], [id number] , [facility] No Information 3 Radha Shelton. [address] [place] [address], [id number], [place]. tel:[phone], [id number] , [facility] No Information 0 Nurse Nurse. . [facility], [address] [place] [address], [phone] , [facility] No Information May- 0 Nurse Nurse. . OFFICE/OUTPA TIENT VISIT, [address], [id number] , [facility] f/up (chief complaint) Body mass index (BMI) 26.0-26.9, adultDietary counseling and surveillanceExe rcise counselingNonto xic goiter, unspecifiedEsse ntial (primary) hypertensionAbn ormal results of liver function studiesPure hyperglyceridem ia May- 0 No Information OFFICE/OUTPA TIENT VISIT, [address], [id number] , [facility] f/up (chief complaint) BMI pediatric, 85% to less than 95th percentile for ageDietary counseling and surveillanceExe rcise counselingVomit ingAbnormal results of liver function studies 0 No Information [address], [id number] , [facility] No Information 0 No Information OFFICE/OUTPA TIENT VISIT, [facility], [address] [place] [address], [phone] , [facility] f/up (chief complaint) BMI pediatric, 85% to less than 95th percentile for ageDietary counseling and surveillanceExe rcise counselingVomit ingCardiac murmur, unspecifiedNont oxic goiter, unspecifiedAbno rmal finding of blood chemistry, unspecifiedAbno rmal results of liver function studies 0 No Information [facility], [address] [place] [address], [id number] , [facility] No Information 0 No Information OFFICE/OUTPA TIENT VISIT, [facility], [address] [place] [address], [id number] , [facility] acute (chief complaint) BMI pediatric, 85% to less than 95th percentile for ageDietary counseling and surveillanceExe rcise counselingCardi ac murmur, unspecifiedVomi tingNontoxic goiter, unspecifiedAbno rmal finding of blood chemistry, unspecified 0 No Information [facility], [address] [place] [address], [id number] , [facility] No Information 0 Nacho Luz. [address] [place] [address], [id number], [place]. tel:[phone] [facility], [address] [place] [address], [id number] , [facility] Dental Encounter for dental exam and cleaning w/o abnormal findings 0 No Information [facility], [address] [place] [address], [id number] , [facility] Dental Encounter for dental exam and cleaning w/o abnormal findings 9 Kaelyn Jefferson. [facility] [place], [place], [id number], [place]. tel:[phone] [facility], [address] [place] [address], [id number] , [facility] Dental Encounter for dental exam and cleaning w/o abnormal findings 9 Ammy Pastrana. [address], [place], [id number], . tel:[phone] [facility], [address] [place] [address], [id number] , [facility] Dental Den Encounter for dental exam and cleaning w/o abnormal findings 9 No Information [facility], [address] [place] [address], [id number] , [facility] Essential (primary) hypertensionPat ient's noncompliance w oth medical treatment and regimen 8 No Information [facility], [address] [place] [address], [phone] , [facility] No Information 8 No Information PREV VISIT, EST, AGE 12-17 [facility], [address] [place] [address], [phone] , [facility] Well child (chief complaint) Encntr for routine child health exam w/o abnormal findingsBMI pediatric, 85% to less than 95th percentile for ageDietary counseling and surveillanceExe rcise counselingEssen tial (primary) hypertensionNon adherence to medical treatment 8 No Information PREV VISIT, EST, AGE 12-17 [facility], [address] [place] [address], [phone] , [facility] physical (chief complaint) Encntr for routine child health exam w/o abnormal findingsBMI pediatric, 5th percentile to less than 85% for ageHypertension Other hypertrophic disorders of the skinDietary counseling and surveillanceOth er specified counseling 8 No Information [facility], [address] [place] [address], [id number] , [facility] No Information 7 No Information OFFICE/OUTPA TIENT VISIT, [facility], [address] [place] [address], [id number] , [place] [employer]IER CONTROL OPERATOR [facility] BP check (chief complaint) BMI pediatric, 5th percentile to less than 85% for ageHypertension Familial hypercholestero lemia 7 No Information OFFICE/OUTPA TIENT VISIT, [facility], [address] [place] [address], [phone] , [place] [facility] [employer] O[employer] [facility] URI (chief complaint) Viral infection, unspecifiedPain in throatCoughFeve r, unspecified 7 No Information OFFICE/OUTPA TIENT VISIT, [facility], [address] [place] [address], [phone] , [place] [facility] [employer] [facility] Loss of appetite 6 No Information [facility], [address] [place] [address], [phone] , [place] [facility] [employer] [facility] No Information 6 No Information OFFICE/OUTPA TIENT VISIT, [facility], [address] [place] [address], [id number] , [place] [facility] [employer] [facility] Loss of appetite 6 No Information [facility], [address] [place] [address], [phone] , [place] [facility] [employer] Dental Dental examination 5 No Information [facility], [address] [place] [address], [phone] , [place] [facility] [employer] Dental Dental examination 4 No Information [facility], [address] [place] [address], [phone] , [place] [facility] [employer] [facility] Dental Dental examination 4 No Information PREV VISIT, [facility], AGE 12-17 [facility], [address] [place] [address], [phone] , [place] [facility] [employer]OL O[employer] [facility] Well child - 12 Years (chief complaint) Routine infant or child health checkEncounters for unspecified administrative purposeOther general medical examination for administrative purposesRoutine infant or child health checkNEED FOR PROPHYLACTIC VACCINATION WITH COMBINED DIPHTHERIA-TETA NUS-PERTUSSIS (DTP) (DTAP) VACCINENeed for prophylactic vaccination and inoculation against varicella 4 No Information OFFICE/OUTPA TIENT VISIT, [facility], [address] [place] [address], [phone] , [facility] [place] rash (chief complaint) Dermatophytosis of the bodyInfluenza Vaccine 3 No Information [facility], [address] [place] [address], [phone] , [place] [facility] [place] Acute Visit (chief complaint) No Information 3 No Information OFFICE/OUTPA TIENT VISIT, [facility], [address] [place] [address], [phone] , [facility] [place] Generic (chief complaint) Juvenile osteochondrosis of hip and pelvis 3 No Information [facility], [address] [place] [address], [id number] , [facility] [place] chart update rt hip status (chief complaint) Aseptic necrosis of bone, site unspecified 3 No Information OFFICE/OUTPA TIENT VISIT, [facility], [address] [place] [address], [phone] , [facility] [place] [facility] Follow up (chief complaint) Aseptic necrosis of bone, site unspecified 3 No Information OFFICE/OUTPA TIENT VISIT, [facility], [address] [place] [address], [id number] , [place] [facility] [place] leg pain (chief complaint) Other general medical examination for administrative purposesPain in joint involving pelvic region and thigh 3 Mundo Wilson. [address], [place], [place], [id number], [place]. tel:[phone] OFFICE/OUTPA TIENT VISIT, [address], [phone] , [place] [facility] DENIER CONTROL OPERATOR AH [facility] fever (chief complaint) FeverUpper Respiratory Infection, Acute Dec- 4-201 2 No Information [facility], [address] [place] [address], [id number] , [facility] Dental Dental examination Mar- 1-201 2 Ammy Pastrana. [address], [place], [id number], . tel:[phone] Referring Provider: Ronny Read, [address] [place], [address] . tel:[phone] [facility], [address] [place] [address], [phone] , [facility] Dental Dental examination Jan- 0-201 2 Kaelyn Jefferson. [address] [place], [place], [id number], . tel:[phone] [facility], [address] [place] [address], [phone] , [facility] Dental No Information 2-201 2 Kaelyn Jefferson. [address] [place], [place], [id number], [place]. tel:[phone] [facility], [address] [place] [address], [phone] , [facility] Dental No Information 9201 2 Sheyot Ronny. [address] [place], [place], [id number], . tel:[phone] Family History Family Member Type Diagnosis Age At Onset Paternal grandmother Problem (finding) asthma ma gr aount Problem (finding) Diabetes mellitus Paternal aunt Problem (finding) Diabetes mellitus ma gr ga ma Problem (finding) Cancer Mother Problem (finding) Anxiety Paternal aunt Problem (finding) Anxiety Father Problem (finding) hypertension samantha chau ga pa Problem (finding) coronary arterioscleros is Immunizations Vaccine Date Status Comments Meningococcal administered Source: New Im munization Record HPV (9-valent) administered Source: New I mmunization Record Tdap (Adacel r) administered Note: [id number] ; Source: New Immunization Record Varicella administered Note: [id number] ; Source: New Immunization Record flu (split) preservative madisyn e, 3 yrs or older administered Note: [facility]# [id number] ; Source: New Immunization Record DTAP administered Source: Other R egistry IPV administered Source: Other R egistry MMR administered Source: Other R egistry VZV administered Source: Other R egistry HEP B administered Source: Other R egistry DTAP administered Source: Other R egistry MMR administered Source: Other R egistry HIB PRP-T administered Source: Other R egistry HIB PRP-T administered Source: Other R egistry DTAP administered Source: Other R egistry IPV administered Source: Other R egistry HIB PRP-T administered Source: Other R egistry HEP B administered Source: Other R egistry IPV administered Source: Other R egistry DTAP administered Source: Other R egistry HIB PRP-T administered Source: Other R egistry HEP B administered Source: Other R egistry IPV administered Source: Other R egistry DTAP administered Source: Other R egistry Payers Payer name Insurance type Covered republican ID Authoriza tion(s) No Information Social History Type Description Quantity Date Captured Comments Alcohol Use Details Unknown Caffeine Use Details Unknown Tobacco Use Status No Information Smoking Status No Information Sex Male Sexual Orientation Straight or heterosexual Mar Gender Identity Male Chief Complaint And Reason For Visit No Information Reason For Referral Reason For Referral No Information Plan Of Treatment Date Type Action Status Goal Vision screen (18-21 yr). Du e on due Goal Hearing screen (10-21 yr). D ue on due Goal Hematocrit. Due on 23 due Goal Well visit (12 years) due Goal HPV (1st) due Goal Influenza vaccine. Due on No due Goal HPV (2nd). Due on 9 due Goal Depression screening. Due on due Goal Lipid panel. Due on 042 due Goal Tdap due Goal HPV (3rd). Due on due Goal Hepatitis C screening. Due o n due Goal Unhealthy drug u se screening. Due on due Goal Urinalysis due Goal ECG. Due on due Goal HPV (3rd). Due on due Goal HPV (2nd). Due on due Goal Fluoride varnish application. Due on due Goal Vision screen (15-17 yr) due Goal HPV (1st) due Goal Lipid panel. Due on 023 due Goal Influenza vaccine. Due on due Goal Tdap due Goal Depression screening. Due on due Goal Urinalysis due Goal ECG. Due on due Goal Vision screen (8-9 yr) due Goal Well visit (12 years) due Goal Vision screen (10-11 yr) due Goal Hematocrit. Due on 20 due Goal Well visit (18 years). Due o n due Goal Vision screen (12-14 yr) due Goal Hearing screen (10-21 yr). D ue on due Goal Vision screen (18-21 yr) due Goal Tdap due Goal Lipid panel. Due on 025 due Goal HPV (1st) due Goal Depression screening. Due on due Goal Urinalysis due Goal ECG. Due on due Goal Hematocrit. Due on 20 due Goal Well visit (18 years). Due o n due Goal Hearing screen (10-21 yr). D ue on due Goal Vision screen (18-21 yr) due Goal Vision screen (15-17 yr) due Goal Vision screen (8-9 yr) due Goal Well visit (12 years) due Goal Vision screen (10-11 yr) due Goal Vision screen (12-14 yr) due Goal Dietary manageme nt education, guidance, and counseling completed Goal Vision screen (15-17 yr) due Goal Tdap due Goal Lipid panel. Due on 023 due Goal Fluoride varnish application. Due on due Goal Depression screening. Due on due Goal HPV (3rd). Due on 9 due Goal HPV (1st) due Goal HPV (2nd). Due on 9 due Goal Urinalysis due Goal ECG. Due on due Goal Vision screen (18-21 yr) due Goal Well visit (18 years). Due o n due Goal Vision screen (8-9 yr) due Goal Hematocrit. Due on 20 due Goal Hearing screen (10-21 yr). D ue on due Goal Well visit (12 years) due Goal Vision screen (10-11 yr) due Goal Vision screen (12-14 yr) due Goal Lifestyle education regardin g diet completed Goal Well visit (12 years) due Goal Vision screen (10-11 yr) due Goal Vision screen (12-14 yr) due Goal Vision screen (8-9 yr) due Goal Fluoride varnish application. Due on due Goal HPV (3rd). Due on 9 due Goal Depression screening. Due on due Goal Tdap due Goal HPV (2nd). Due on 9 due Goal Lipid panel. Due on 023 due Goal Influenza vaccine. Due on due Goal HPV (1st) due Goal Urinalysis due Goal ECG. Due on due Goal Well visit (18 years). Due o n due Goal Hearing screen (10-21 yr). D ue on due Goal Vision screen (15-17 yr) due Goal Vision screen (18-21 yr) due Goal Hematocrit. Due on 20 due Goal Lifestyle education regardin g diet completed Goal Vision screen (12-14 yr) due Goal Well visit (12 years) due Goal Vision screen (10-11 yr) due Goal Vision screen (8-9 yr) due Goal HPV (3rd). Due on 9 due Goal HPV (2nd). Due on 9 due Goal HPV (1st) due Goal Lipid panel. Due on 023 due Goal Tdap due Goal Fluoride varnish application. Due on due Goal Depression screening. Due on due Goal Urinalysis due Goal ECG. Due on due Goal Vision screen (18-21 yr) due Goal Hearing screen (10-21 yr). D ue on due Goal Hematocrit. Due on 20 due Goal Well visit (18 years). Due o n due Goal Vision screen (15-17 yr) due Goal Lifestyle education regardin g diet completed Goal Vision screen (8-9 yr) due Goal Hematocrit. Due on 20 due Goal Vision screen (18-21 yr) due Goal Vision screen (12-14 yr) due Goal Vision screen (10-11 yr) due Goal Well visit (12 years) due Goal Hearing screen (10-21 yr). D ue on due Goal Vision screen (15-17 yr) due Goal Well visit (17 years). Due o n due Goal Tdap due Goal HPV (1st) due Goal HPV (3rd). Due on 9 due Goal HPV (2nd). Due on 9 due Goal Influenza vaccine. Due on due Goal Fluoride varnish application. Due on due Goal Lipid panel. Due on 023 due Goal Depression screening. Due on due Goal ECG. Due on due Goal Urinalysis due Goal Well visit (17 years). Due o n due Goal Well visit (17 years). Due o n due Goal Well visit (17 years). Due o n due Goal Well visit (16 years) due Goal Hematocrit due Goal Vision screen (15-17 yr) due Goal Vision screen (18-21 yr) due Goal Hearing screen (10-21 yr) du e Goal Dietary manageme nt education, guidance, and counseling completed Goal Vision screen (15-17 yr) due Goal Hearing screen (10-21 yr) du e Goal Well visit (15 years) due Goal Hematocrit due Goal Dietary manageme nt education, guidance, and counseling completed Goal Dietary manageme nt education, guidance, and counseling completed Goal Vision Screen (12-13 yr). Du e on due Goal Well visit (12 years). Due o n due Referral Ordered: US SOFT TISSUE HEAD NECK THYROID ordered Referral Ordered: Referrals: Oral Maxillofacial Surgery. Evaluate and treat ordered Referral Referred To: [facility] [address] [place], [address] [phone] Ordered: Referrals: Nephrology. [facility]. Evaluate and treat ordered Referral Referred To: Hao Lopez Ordered: Referrals: Allopathic & Osteopathic Physicians : Pediatrics. Hao Lopez. Evaluate and treat ordered Referral Ordered: Referrals: Nephrology. Location: [place] ordered Referral Referred To: [facility] [address] [place], [address] [phone] Ordered: Referrals: Cardiology - Pediatric. [facility]. Follow-up and treat ordered Referral Referred To: Jonathan Davis Ordered: Referrals: Allopathic & Osteopathic Physicians : Pediatrics. Jonathan Davis. Follow-up and treat ordered Referral Ordered: Referrals: Cardiology - Pediatric. Location: [place]. Follow-up and treat ordered Referral Referred To: [facility] [address] [place], [address] [phone] Ordered: Referrals: Cardiology. [facility]. Evaluate and treat ordered Referral Referred To: Galileo Jeong [address] [facility]
[id number] [place], [place] [phone] Ordered: Referrals: Cardiology. Galileo Jeong. Evaluate and treat ordered Referral Referred To: [facility] [address] [place] [address], [address] [phone] Ordered: Referrals: Diagnostic Radiology. [facility]. Diagnostic testing ordered Referral Ordered: Referrals: Cardiology - Pediatric. Location: [facility]. Consult ordered Referral Ordered: Referrals: Cardiology - Pediatric. Evaluate and treat ordered Referral Ordered: US EXAM, ABDOM, COMPLETE ordered Referral Referred To: [facility],[address] [place], [phone] Ordered: Referral: [facility]. Evaluate and treat. Appointment date/timeframe: 02/08/2013 ordered Referral Referred To: [facility] [address] [place], [address] [phone] Ordered: Referral: [facility]. Evaluate and treat. ordered Referral Referred To: [facility] [address] [place], [address] [phone] Ordered: Referral: [facility]. Evaluate and treat. ordered Referral Ordered: Referral: Ortho Surg. ordered Referral Ordered: Referral: Physical Therapist/Independent. ordered Referral Referred To: [facility] [address] [place], [address] [phone] Ordered: Referral: [facility]. Evaluate and treat. ordered Patient Education A Healthy Lifestyle for Your Child: A~ completed Patient Education Body Mass Index: After Your Visit completed Patient Education A Healthy Lifestyle for Your Child: A~ completed Patient Education Learning About High Blo od Pressure completed Patient Education Well Care???Tips for Pa rents of Teens: completed Patient Education Well Care???Tips for Te ens: After Your completed Patient Education Learning About Healthy Eating for Teen completed History Of Present Illness Encounter Date Complaint History Of Prese nt Illness f/up GI--NO RETURN of prvious symptoms of N / V nor abd pains, nor chill or T. No longer smoking MJ, and symptoms resolved since then. Needs repeat LFTs But LFTs hi, and hep panel abc neg, but didnt do f/up LFTs as recommended.CVASC--Past hx HTN, but off meds since 08/2018, since seen at [facility] and work up and ambulat BP monitoring was normal add to pt, and their Dx was with white coat HTN", BP diastolic a bit hi today while continues ok w/out meds.ENDO--Minimal hi trig 151 in 2018, will repeat laterMSKEL--Perthes R hip, and had prox fem osteotomy age 12.HEMAT--Hi hct 49 in past, later had anemia 2019 (? p op), now anew ok and ferritin normal.No new symptoms. f/up GI--NO RETURN of prvious symptoms of N / V: Was V in am's x2 or 3 times for last 2 wks upon awakning, and without any prior meals or meds, and w/out prior abd pain, tho has some epig pain for 2 min thereafter; then rest of day ok w/out any symptoms. Now no longer any N / V symptoms, nor chill or T; no dysuria, no diarrhea; no others w this at work or family; works at [employer]. No longer smoking MJ, and symptoms resolved since then. Needs repeat LFTs But LFTs hi, and hep panel abc neg.CVASC--Past hx HTN, but off meds since 08/2018, since seen at [facility] and work up and ambulat BP monitoring was normal add to pt, and their Dx was whit coat HTN , BP ok here continues ok w/out meds.ENDO--Minimal hi trig 151 in 2018, will repeat laterMSKEL--Perthes R hip, and had prox fem osteotomy age 12.HEMAT--Hi hct 49 in past, later had anemia 2019 (? p op), now anew ok and ferritin normal.No new symptoms. f/up GI--V in am's x2 or 3 times for last 2 wks upon awakning, and without any prior meals or meds, and w/out prior abd pain, tho has some epig pain for 2 min thereafter; then rest of day ok w/out any symptoms. Now no longer any N / V symptoms, nor chill or T; no dysuria, no diarrhea; no others w this at work or family; works at [employer]. No longer smoking MJ, and symptoms resolved since then. But LFTs hi, and i asked pt to come infor hep panel but not yet done.CVASC--Past hx HTN, but off meds since 08/2018, since seen at [facility] and work up and ambulat BP monitoring was normal add to pt, and their Dx was whit coat HTN , BP ok here today as well as last visit.ENDO--Minimal hi trig 151 in 2018, will repeat laterMSKEL--Perthes R hip, and had prox fem osteotomy age 12.HEMAT--Hi hct 49 in past, later had anemia 2019 (? p op), now anew ok and ferritin normal.No new symptoms. acute New pt for me, s o i rev records:GI--V in am's x2 or 3 times for last 2 wks upon awakning, and without any prior meals or meds, and w/out prior abd pain, tho has some epig pain for 2 min thereafter; then rest of day ok w/out any symptoms. No chill or T; no dysuria, no diarrhea; no others w this at work or family; works at [employer]. Smokes MJ at h s.CVASC--Past hx HTN, but off meds since 08/2018, since seen at [facility] and work up and ambulat BP monitoring was normal add to pt, and their Dx was whit coat HTN , BP ok here today.ENDO--Minimal hi trig 151 in 2018, will repeat laterMSKEL--Perthes R hip, and had prox fem osteotomy age 12.HEMAT--Hi hct 49 in past Well child Here for WCC pt here with gma but in room alone and historianinterim illness/ED/UC visits: NO ED visits; no interim illnesses; of note, pt says he went to [place] to one cardiology appt and they said they wanted to send him to another doctor but doesn't remember if he was supposed to be on meds or what; last he remembers is taking meds in Jul 2017; pt is aware when BP high b/c of "feeling funky, headacheDental visit DUE. brushes 2 x /dproblems NONEsleep 8+ hrs w/ nap in mek[place].; uses Melatonin 1-2x's/wk to help him fall asleepschool/daycare- good but easily distracted since elementary, sits in front of classbehavior: no issuesDIET: + soda EXERCISE: wt lifting; no cardioElimination no issues physical No interim illne ss or ED visitsdue for dental visit; brushes 2x/dtaking BP BID has log, got symptomatic 1 day when he forgot am meds; BP to 141/83 P 84 (wrist home machine)no concerns other than BP BP check The symptoms beg an 3 years ago. Risk factors include high salt intake, inactive lifestyle and male gender. The hypertension is exacerbated by nothing. There are no associated symptoms. Pertinent negatives include chest pain, claudication, confusion, diaphoresis, dyspnea, epistaxis, fatigue, headache, irregular heartbeat/palpitations, nausea, visual disturbances and vomiting. Additional information: asymptomatic; unclear why took BP in the first place; onset determined by exam of vitals; + fam hx of incr choles- mom and gma; +fam hx [place] 64yo gpa; prediabetes-mom and gma URI Onset: 3 days ag o. Severity: mild. The patient describes the cough as dry and hacking. It occurs persistently. The problem has not changed. There are no aggravating factors. Relieving factors include OTC cough syrup. Associated symptoms include cough, nasal congestion, post-nasal drainage, rhinorrhea, sore throat and myalgias. Pertinent negatives include dyspnea, dyspnea on exertion, fatigue, fever, hoarseness and rhinitis. The patient does not have a history of allergies or asthma. 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 Related to Essential (primary) hypertension repat LFTs Related to Abnor mal results of liver function studies repeat lipids Related to Pure hyperglyceridemia Giving encouragement to exercise Related to Body mass index [BMI] 26.0-26.9, adult Dietary management e ducation, guidance, and counseling Related to Body mass index [BMI] 26.0-26.9, adult w hep abc neg, so my theory is that substance in MJ smoking likely damaged liver giving hi LFTs and V, and now V resolved as MJ smoking has stopped. Will repeat LFTs in mid may, and recheck then. Consider report to public health re this. Related to Abnormal results of liver function studies now resolved, see comments below . Related to Vomiting Giving encouragement to exercise Related to Body mass index [BMI] pediatric, 85th percentile to less than 95th percentile for age Lifestyle education regarding di et Related to Body mass index [BMI] pediatric, 85th percentile to less than 95th percentile for age tsh normal, no need US yet, follow clinicaLLY Related to Nontoxic goiter, unspecified resolved, and may tong ve been due to MJ smoking, now resolved after stopping.However, LFTs hi, so need o r/o hepatititis and will do panel Related to Vomiting see above; hep panel and no work for added week. Related to Abnormal results of liver function studies past hct changes now normal, ferritn ok Related to Abnormal finding of blood chemistry, unspecified follow clinically Related to Car diac murmur, unspecified Giving encouragement to exercise Related to Body mass index [BMI] pediatric, 85th percentile to less than 95th percentile for age Lifestyle education regarding di et Related to Body mass index [BMI] pediatric, 85th percentile to less than 95th percentile for age ferritin and later h emochromatosis screen if hi Related to Abnormal finding of blood chemistry, unspecified follow clinically Related to Car diac murmur, unspecified of ? etiol, will do labs; since normal exam suspect may be due to previous nights MJ use, and i recommend stopping this to see if symptoms resolve.Stop work at [employer] until symptoms resolved, or cause found; stop for 1wk. 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, unspecified Giving encouragement to exercise Related to Body mass index [BMI] pediatric, 85th percentile to less than 95th percentile for age Lifestyle education regarding di et Related to Body mass index [BMI] pediatric, 85th percentile to less than 95th percentile for age Discussed OHI Related to Encou nter for dental exam and cleaning w/o abnormal findings discussed oh Related to Encou nter for dental exam and cleaning w/o abnormal findings Reviewed OHI Related to Encou nter for dental exam and cleaning w/o abnormal findings Reviewed OH Related to Encou nter for dental exam and cleaning w/o abnormal findings Discussed OHI Related to Den E ncounter for dental exam and cleaning w/o abnormal findings It is important and medication works best when taken as prescribed.Follow up and monitoring lab work is important to ensure child is not being harmed by medication/ treatments.please keep follow up appointments and follow up regularly- usually every 3 months if stable on medications for a chronic problem/illness/disease Related to Nonadherence to medical treatment decr salt intake- se e handout given- use Mrs. Rose or other salt substitute or fresh herbs for seasoning foodsavoid packaged, fast foodsget more physically active. Related to Essential (primary) hypertension Review handout on he althy eatingSet weekly goals for lifestyle changes- add/increase water, exercise, wean junk foods, high calorie drinks, goal of 5 servings each of fruits and veggies.Don't skip mealsChoose Healthy snacks- handout available or check GoogleChoose sugar-free drinks- WATER, flavored water, 1% or skim milk, unsweetened tea, Crystal Light, Wyler's Light, Propel Zero, Powerade Zero, Mer Sun Roaring Herrera, Wilmar Aid 10 calorie Jammers, Minute Maid 5 calorie herrera. Related to Dietary counseling and surveillance Increase physical ac tivity-vigorous walking, take the stairs, sports, dance, play outside-Goal 1 hr., 3 times a weekReduce Screen time to less than 2 hours daily; for every 30 min of screen time, get 30 min of activityOnce a week had a no TV/Video Games/computer/tablet and do something activeif trying to lose weight 1-2 pounds weekly is a safe, attainable, sustainable goal. Related to Exercise counseling Age appropriate anti cipatory guidance discussed (15-21 years) Related to Encntr for routine child health exam w/o abnormal findings Age appropriate diet discussed (15-21 years) Related to Encntr for routine child health exam w/o abnormal findings Age appropriate safe ty discussed (15-21 years) Related to Encntr for routine child health exam w/o abnormal findings Oral Health Discussed (15-21 yea rs) Related to Encntr for routine child health exam w/o abnormal findings Handout given Related to Encnt r for routine child health exam w/o abnormal findings Review anticipatory guidance handout for important safety, development info Related to Encntr for routine child health exam w/o abnormal findings Immunes as ordered Related to En cntr for routine child health exam w/o abnormal findings refused flu vaccine Related to E ncntr for routine child health exam w/o abnormal findings see BMI plan for dietary advice Related to Encntr for routine child health exam w/o abnormal findings Appropriate developm ent but overweight Related to Encntr for routine child health exam w/o abnormal findings please review VIS fo r information about vaccines Related to Encntr for routine child health exam w/o abnormal findings Exercises education, guidance, and counseling Related to Body mass index (BMI) pediatric, 85th percentile to less than 95th percentile for age Dietary management e ducation, guidance, and counseling Related to Body mass index (BMI) pediatric, 85th percentile to less than 95th percentile for age Increase activity. Related to Es sential (primary) hypertension Follow a low sodium diet. Relate d to Essential (primary) hypertension continue to keep a l og of BP's and take medication every morning.continue to work on diet and low salt intake. Related to Hypertension Review handout on he althy eatingSet weekly goals for lifestyle changes- add/increase water, exercise, wean junk foods, high calorie drinks, goal of 5 servings each of fruits and veggies.Don't skip meals- eat breakfastIncrease physical activity-vigorous walking, take the stairs, sports, dance, play outside-Goal 1 hr., 3 times a weekReduce Screen time to less than 2 hours daily; for every 30 min of screen time, get 30 min of activityOnce a week had a no TV/Video Games/computer/tablet and do something active. Related to BMI pediatric, 5th percentile to less than 85% for age Exercises education, guidance, and counseling Related to Body mass index (BMI) pediatric, 5th percentile to less than 85th percentile for age Dietary management e ducation, guidance, and counseling Related to Body mass index (BMI) pediatric, 5th percentile to less than 85th percentile for age Appropriate Growth and Developme nt Related to Encntr for routine child health exam w/o abnormal findings Review anticipatory guidance handout for important safety, development info Related to Encntr for routine child health exam w/o abnormal findings refused flu vaccine Related to E ncntr for routine child health exam w/o abnormal findings see BMI plan for dietary advice Related to Encntr for routine child health exam w/o abnormal findings Exercises education, guidance, and counseling Related to Body mass index (BMI) pediatric, 5th percentile to less than 85th percentile for age Dietary management e ducation, guidance, and counseling Related to Body mass index (BMI) pediatric, 5th percentile to less than 85th percentile for age Symptomatic treatmen t: normal saline (NS) drops or homemade for congestionpush fluids to keep mucus thin; cool mist humidifier; OTC cough and cold meds ok if child older than 6 years oldAcetaminophen (Tylenol) or Ibuprofen (Advil, Motrin) for temp. more than 100.5, for fussy /child, or pain.Viral illnesses can take 7-10 days to resolve. Return to office if worse. Related to Viral infection, unspecified discussed viral illn ess and durationUse Tylenol or ibuprofen for painGargle with warm salt water 2-3 times a day to help pain alsook to use over the counter (OTC) products for pain like Chloraseptic or lozenges as wellReturn to office if not improved in 48hr or if T>101 Related to Pain in throat reviewed labs, teach ing and hand out related to cholesterol Related to Loss of appetite laboratory studies a nd possible referral to Gastroeneterology Related to Loss of appetite discussed OH Related to Denta l examination Discussed OH Related to Denta l examination discussed OH Related to Denta l examination Influenza immunization today Rel ated to Dermatophytosis of the body Miconazole 2% cream twice daily x 4 weeks Related to Dermatophytosis of the body Follow up in four we eks if lesions have not resolved Related to Dermatophytosis of the body Assessments Type Assessment Date No Information Patient Care Teams Name Effective Dates (start - stop) Status Members No Information
== END 2024-08-29 20:21 | disposition left against medical advice (07) ==
PROVIDERS: Emergency Provider Emergency Medicine
DX: J02.9 Acute pharyngitis, unspecified (principal)
CPT/HCPCS: 99281

== ENCOUNTER 2024-08-30 14:51 | Emergency (ER) | payer SELFPAY ==
[2024-08-30 15:36] VITALS: BP 116/79; PULSE 84; RESP 16; TEMP 37.1; O2SAT 98; BMI 20.3
--- NOTE | 2024-08-30 15:37 | ED_ITS ---
HPI - General Adult General Chief complaint: Upper Respiratory Symptoms Stated complaint: Sore throat Time Seen by Provider: 08/30/24 17:12 Source: patient and RN notes reviewed Mode of arrival: ambulatory Limitations: no limitations History of Present Illness ED Provider: Ciarra Padgett PA-C HPI narrative: This is a 23-year-old male who presents emergency department with complaints of throat irritation for the last 4 days. Patient reports that strep throat has been going around his work and his boss requested him to be seen in the emergency room to rule out strep throat. He states that he has a mild sore throat, denies any difficulty swallowing, fevers, chills, chest pain, shortness of breath, cough. He states that he needs proof of testing performed today to return back to work. He is feeling well. No other complaints or concerns at this time. MD complaint: Strep test Relieving factors: none Exacerbating factors: none Associated symptoms: denies other symptoms Treatments prior to arrival: none Related Data Previous Rx's ?Medication ?Instructions ?Recorded amoxicillin 875 mg-potassium 1 tab PO BID #20 tabs 10/04/21 clavulanate 125 mg tablet Allergies Allergy/AdvReac Type Severity Reaction Status Date / Time bee pollen [bee stings] Allergy Rash Verified 08/30/24 15:40 Review of Systems Review of Systems: Yes all other systems are reviewed and are negative Constitutional: Constitutional: Reports as per [facility] Past Medical History Attestation statement: The following information was validated with the patient. Social History Social History Advance Directives: No Advance Directives Information Provided: No Do you have a plan to hurt others: No Plan Physical Exam ED Vital Signs: Vital Signs - 24 hr 08/30/24 15:36 08/30/24 17:44 Temperature 98.8 F 98.4 F Pulse Rate 84 80 Respiratory Rate 16 16 Blood Pressure 116/79 134/97 H Pulse Oximetry 98 Oxygen Delivery Method Room Air Room Air BMI result Body Mass Index 20.3 Const General: cooperative, comfortable and no acute distress Orientation/consciousness: patient oriented x3 Limitations: no limitations HENMT Other: Oropharynx with bilateral tonsillar hypertrophy, no erythema noted. Uvula is midline. No trismus, drooling, or dysphonia. Tolerating oral secretions well without difficulty. Speaking in full sentences under no acute distress. Head: Yes normal to inspection, Yes normocephalic and Yes atraumatic Ears: hearing grossly normal bilaterally General nose exam: Normal external nose present Face and sinus: Yes normal facial exam Mouth: Normal oral and palatal mucosa present, oropharynx normal and moist mucous membranes Throat: Yes posterior oropharynx normal Eyes General: appearance normal, both eyes and all related structures Eyelids: Yes eyelids normal Conjunctivae: conjunctivae normal Sclerae: sclerae normal Pupils: Equal, round and reactive pupils present EOM: EOMs intact bilaterally Neck Neck: Yes normal visual inspection, Yes full ROM and Yes no lymphadenopathy Lymphatic: no lymphadenopathy noted Chest Chest palpation & inspection: normal inspection of the chest Resp Effort & Inspection: normal respiratory effort and able to speak in complete sentences Auscultation: clear to auscultation bilaterally, no crackles, no rales, no rhonchi and no wheezes Cardio Rate: regular rate Rhythm: regular rhythm Heart sounds: S1 normal heart sound present and S2 normal heart sound present GI Inspection: Yes normal to inspection Skin General skin exam: no rashes or lesions noted Trauma: no lacerations or abrasions Wounds: no wounds Neuro General: patient oriented x3 and moves all extremities Cranial nerves: Yes Equal, round and reactive pupils present Extrem General: Yes normal to inspection Right upper extremity: normal to inspection Left upper extremity: normal to inspection Right lower extremity: normal to inspection Left lower extremity: normal to inspection Course Course Course Narrative: This is an RME: Additional HPI, ROS, PE not included below will be deferred to primary provider. RME assessment and note performed by: Ciarra Padgett PA-C This is a 38-khry-bdh-male who presents to the ER with complaints of sore throat x 1 week. Reporting +sick contacts with strep. BL tonsillar erythema and edema noted. Plan: Strep, viral swabs Medical Decision Making Medical Decision Making MDM Narrative: This is a 23-year-old male, with no known medical problems, who presents emergency department for strep testing. On arrival, vital signs within normal limits. He is speaking full sentences under no acute distress. Oropharynx with bilateral tonsillar hypertrophy, no exudates, no erythema noted. Patient states that he knows that he has enlarged tonsils and states that his boss wanted him to have a strep test performed given that there was a recent outbreak at work. Viral swabs were obtained, negative for COVID, flu, RSV, strep. Discussed with patient that his strep test is negative. He states that his tonsils are typically enlarged, I advised patient that this could be viral, or his anatomy. I encouraged patient to follow-up with PCP. Given strict return precautions. He is eating, drinking, and feeling well. Further evaluation needed. Patient stable for discharge Differential Diagnosis Differential Diagnoses: The differential diagnosis associated with the presentation includes Tonsillitis, strep pharyngitis, [employer] Lab Data MDM Lab Attestation statement: I reviewed the patient's lab results. Negative Labs: Lab Results 08/30/24 Range/Units 15:51 Influenza Type A (PCR) NEGATIVE (Negative) Influenza Type B (PCR) NEGATIVE (Negative) RSV RNA Qual (PCR) NEGATIVE (Negative) SARS-CoV-2 RNA (RT-PCR) NEGATIVE (Negative) S. pyogenes GrpA MADHU Negative (Negative) Discharge Plan Discharge Clinical Impression: Tonsillitis Patient Disposition: Home, Self-Care Instructions: Tonsillitis (ED) Additional Instructions: You were seen in the emergency department due to concerns for swollen tonsils. You tested negative for COVID, flu, RSV, and strep throat today. You may have a virus that is causing you to have the symptoms. You may also have enlarged tonsils which may be normal for you. Please follow- up with the primary care physician. If you develop any difficulty swallowing, please seek emergent care. Alternate between ibuprofen and or Tylenol as needed for pain and symptoms. Prescriptions: No Action amoxicillin-pot clavulanate 875-125 mg tablet 1 tab PO BID Qty: 20 0RF Stand Alone Forms: Work/School Release Interventions: ED Discharge Assessment Last Done: 08/30/24 17:44 Discharge Date/Time: 08/30/24 17:45 Print Language: Kazakh
[2024-08-30 16:05] LABS: IDNOW Serial# 58CA691E; Strep A Nucleic Acid Negative (Negative)
[2024-08-30 17:02] LABS: Influenza A PCR NEGATIVE (Negative); Influenza B PCR NEGATIVE (Negative); Resp Syncy Virus RNA Qual PCR NEGATIVE (Negative); SARS COV2 PCR INHOUSE NEGATIVE (Negative)
[2024-08-30 17:44] VITALS: BP 134/97; PULSE 80; RESP 16; TEMP 36.9
== END 2024-08-30 17:45 | disposition home or self-care (01) ==
PROVIDERS: Physician Assistant Medical; Emergency Provider Emergency Medicine
DX: J03.90 Acute tonsillitis, unspecified (principal); Z03.818 Encounter for observation for suspected exposure to other biological agents ruled out
CPT/HCPCS: 0241U; 87651; 99282; 99283

== ENCOUNTER 2024-10-07 18:07 | Emergency (ER) | payer OTHER, SELFPAY ==
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
[2024-10-07 19:08] VITALS: BP 130/70; PULSE 75; RESP 16; TEMP 36.4; O2SAT 98; BMI 21.7
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
[2024-10-07 21:03] VITALS: BP 130/70; PULSE 75; RESP 16; TEMP 36.4; O2SAT 98
== END 2024-10-07 21:04 | disposition home or self-care (01) ==
PROVIDERS: Emergency Provider Emergency Medicine
DX: S16.1XXA Strain of muscle, fascia and tendon at neck level, initial encounter (principal); V44.5XXA Car driver injured in collision with heavy transport vehicle or bus in traffic accident, initial encounter; Y93.89 Activity, other specified; Y92.414 Local residential or business street as the place of occurrence of the external cause; Y99.9 Unspecified external cause status
CPT/HCPCS: 70450; 72125; 99282; 99284

== ENCOUNTER → 2024-10-07 19:12 | Outpatient (BNV) | payer OTHER, SELFPAY | PROVIDERS: Emergency Provider Emergency Medicine; Visit Provider Student in an Organized Health Care Education/Training Program | DX: M54.2 Cervicalgia (principal); S09.90XA Unspecified injury of head, initial encounter | CPT/HCPCS: 70450; 72125 ==

== ENCOUNTER 2025-01-01 16:37 | Emergency (ER) | payer OTHER, SELFPAY ==
[2025-01-01 17:04] VITALS: BP 129/84; BP 151/84; PULSE 84; PULSE 87; RESP 18; TEMP 36.6; O2SAT 96; O2SAT 98; BMI 23.2
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
--- NOTE | 2025-01-01 19:09 | PC.NURSE ---
assumed care of pt. Provider LORE Frances states pt okay to be picked up with a ride. Pt called mom and states she is okay to come get him. pt respirations even and unlabored.
--- NOTE | 2025-01-01 20:31 | PC.NURSE ---
per raymond peraza, okay for pt to be discharged at this time, pt a&ox4, respirations even and unlabored, pt ambulatory out of ed with steady gait and understands dc.
[2025-01-01 20:32] VITALS: BP 129/84; PULSE 84; RESP 18; TEMP 36.6; O2SAT 98
== END 2025-01-01 20:33 | disposition home or self-care (01) ==
PROVIDERS: Emergency Provider Emergency Medicine
DX: F43.9 Reaction to severe stress, unspecified (principal); Z91.51 Personal history of suicidal behavior
CPT/HCPCS: 99284